=== PATIENT | female | born 1955 | race African-American/Black ===

== ENCOUNTER 2019-12-26 14:30 | Emergency (ER) | payer OTHER ==
[~2019-12-26] VITALS: Ht 170.2 cm; Wt 72.6 kg
[2019-12-26 14:40] VITALS: Ht 170.2 cm; Wt 72.6 kg
[2019-12-26 15:45] VITALS: BP 135/80
== END 2019-12-26 15:45 | disposition home or self-care (01) ==
LOC: ED 14:30
DX: M72.2 Plantar fascial fibromatosis (principal); I10 Essential (primary) hypertension
CPT/HCPCS: J1885